=== PATIENT | male | born 1970 | race Caucasian/White ===

== ENCOUNTER 2020-10-26 04:00 | Emergency (ER) | payer MEDICAID ==
[~2020-10-26] VITALS: Ht 160 cm; Wt 83.9 kg
[2020-10-26 04:08] VITALS: BP 124/76
--- NOTE | 2020-10-26 04:20 | NUR ---
50 y/o male, bib daughter due to pt sustained Rt occipital area laceration s/p unwitnessed fall. As per daughter, patient has been drinking alcohol and he was found outside on the floor with a head injury. On assessment, Patient is a/o x1, confused. Unable to make needs known, patient is drowsy s/t +ETOH. Daughter reports no coughing/congestion/fever. Respiration is even and non-labored. Abd rounded, non-tender. No reports of nausea/vomiting. Laceration on head, provided initial treatment. VS WNL. ERMD at bedside. Kept patient comfortable with bilat siderails up and bed in low position. PHX: None Allergy: None
--- NOTE | 2020-10-26 04:35 | NUR ---
Patient is being taken to CT right now.
[2020-10-26] MEDS ORDERED: NACL 0.9% 1,000 ML IV ONE (05:10)
[2020-10-26 05:29] LABS: HEMATOCRIT 46.4 % (36-52); HEMOGLOBIN 15.6 g/dL (12.0-18.0); MEAN CORPUSCULAR HEMOGLOBIN 29 pg (27-31); MEAN CORPUSCULAR HGB CONC 34 g/dL (33-37); MEAN CORPUSCULAR VOLUME 86.4 fL (80-94); PLATELET COUNT (AUTO) 247 K/uL (140-450); RED BLOOD CELL COUNT(AUTO) 5.37 MIL/uL (4.20-6.10); RED CELL DISTRIBUTION WIDTH 13.2 % (11.6-13.7); WHITE BLOOD COUNT (AUTO) 7.5 K/uL (4.8-10.8)
[2020-10-26 05:41] LABS: ALBUMIN 4.4 g/dL (3.4-5.0); POTASSIUM 3.9 mmol/L (3.5-5.1); TOTAL BILIRUBIN 0.5 mg/dL (0.0-1.0)
[2020-10-26 05:47] LABS: LYMPHOCYTES % (MANUAL) 12 % (20-46); MONOCYTES % (MANUAL) 2 % (5-12)
[2020-10-26 05:52] LABS: ANION GAP 18.2 (8-16); CARBON DIOXIDE 24.7 mmol/L (21-32)
--- NOTE | 2020-10-26 06:26 | NUR ---
Recieved order from Dr. Garay saying that patient may go home this morning when the patient is awake and IV hydration is completed. Spoke to daughter Elpidio and gave her an update about the patient's status. Told her that a staff from [facility] will call her when patient is ready to be discharged home, daughter verbalized understanding.
--- NOTE | 2020-10-26 07:13 | NUR ---
Report given to Deya GAXIOLA for continuity of care.
--- NOTE | 2020-10-26 07:13 | NUR ---
report received from Martine GAXIOLA, transfer of care at this time.
--- NOTE | 2020-10-26 07:25 | NUR ---
Note casey in EDM - 10/26/20 at 0823 by [facility] pt sleeping in bed with even and unlabored respirations observed. VSS. will continue to monitor. waiting for NS bolus to finish.
--- NOTE | 2020-10-26 07:25 | NUR ---
pt sleeping in bed with even and unlabored respirations observed. VSS. will continue to monitor. waiting for NS bolus to finish.
--- NOTE | 2020-10-26 08:20 | NUR ---
Patient discharged with v/s stable. Written and verbal after care instructions given and explained. Patient verbalized understanding. Ambulatory with steady gait. All questions addressed prior to discharge. Advised to follow up with PMD.
[2020-10-26 08:28] VITALS: BP 100/65
--- NOTE | 2020-10-28 22:50 | NUR ---
LATE ENTRY- Normal saline 0.9% IV fluids discontinued at 0700
== END 2020-10-26 08:20 | disposition home or self-care (01) ==
LOC: MED 04:00
DX: S01.01XA Laceration without foreign body of scalp, initial encounter (principal); R41.82 Altered mental status, unspecified; F10.129 Alcohol abuse with intoxication, unspecified; W18.39XA Other fall on same level, initial encounter; Y93.89 Activity, other specified; Y92.89 Other specified places as the place of occurrence of the external cause; Y99.8 Other external cause status; Y90.9 Presence of alcohol in blood, level not specified
CPT/HCPCS: 12001; 36415; 70450; 80053; 85025; 96360; 99284; G0482; J7030

== ENCOUNTER 2020-11-09 16:38 | Emergency (ER) | payer MEDICAID ==
[~2020-11-09] VITALS: Ht 170.2 cm; Wt 81.6 kg
[2020-11-09 16:45] VITALS: BP 114/84
[2020-11-09 17:13] VITALS: BP 114/84
== END 2020-11-09 17:10 | disposition home or self-care (01) ==
LOC: MED 16:38
DX: S01.81XD Laceration without foreign body of other part of head, subsequent encounter (principal); X58.XXXD Exposure to other specified factors, subsequent encounter
CPT/HCPCS: 99281